=== PATIENT | male | born 1970 | race African-American/Black ===

== ENCOUNTER → 2018-07-26 | Day surgery (SDC) | payer BC ==
[2018-07-25 11:49] LABS: BASOPHILS % 0.8 % (0.0-1.0); EOSINOPHILS # (AUTO) 0.4 (0.0-0.4); EOSINOPHILS % 6.8 % (0.0-6.0); HEMATOCRIT 45.5 % (38.2-49.6); HEMOGLOBIN 15.3 g/dL (14.0-18.0); LYMPHOCYTES % 20.1 % (18.0-39.1); MEAN CORPUSCULAR HEMOGLOBIN 31.5 pg (28-32); MEAN CORPUSCULAR HGB CONC 33.6 g/dL (31-35); MEAN CORPUSCULAR VOLUME 93.6 fL (81-99); MONOCYTES # (AUTO) 0.8 (0.2-0.8); MONOCYTES % 16.1 % (4.4-11.3); NEUTROPHILS # (AUTO) 2.9 (2.1-6.9); PLATELET COUNT 195 x10e3/uL (140-360); RED BLOOD COUNT 4.86 x10e6/uL (4.3-5.7); RED CELL DISTRIBUTION WIDTH 14.3 % (11.7-14.4)
[2018-07-25 11:55] LABS: INR 0.91; PROTHROMBIN TIME 12.7 seconds (11.9-14.5)
[2018-07-25 12:03] LABS: ALANINE AMINOTRANSFERASE 54 IU/L (0-55); ALBUMIN 3.8 g/dL (3.5-5.0); ALKALINE PHOSPHATASE 34 IU/L (40-150); ANION GAP 11.9 mmol/L (8-16); BLOOD UREA NITROGEN 15 mg/dL (7-26); BUN/CREATININE RATIO 11 (6-25); CALCIUM 9.7 mg/dL (8.4-10.2); CARBON DIOXIDE 27 mmol/L (22-29); CHLORIDE 103 mmol/L (98-107); CREATININE, SERUM 1.35 mg/dL (0.72-1.25); EST GLOMERULAR FILTRATION RATE > 60 ML/MIN (60-); GLUCOSE 103 mg/dL (74-118); POTASSIUM 3.9 mmol/L (3.5-5.1); SODIUM 138 mmol/L (136-145)
[2018-07-25 12:23] LABS: CHOL/HDL RATIO 3.7 (3.9-4.7); CHOLESTEROL 191 MD/DL (0-199); HDL CHOLESTEROL 51 MG/DL (40-60); LDL CHOLESTEROL 118 MG/DL (60-130); TRIGLYCERIDES 109 MG/DL (0-149)
[2018-07-26] VITALS (13 sets, daily range): BP systolic 98–112; BP diastolic 58–78
[~2018-07-26] VITALS: Ht 180.3 cm; Wt 102.5 kg
[~2018-07-26] MED LIST: ALPRAZOLAM 0.5 MG TAB ONE; ANASTROZOLE1 MG PO; ASPIR 8181 MG PO; DIPHENHYDRAMINE HCL 25 MG CAP ONE; DUREZOL5 ML; FENTANYL CITRATE/PF 100MCG/2 ML INJ ONE; FISH OIL 1,0001 EAC2 PO; HEPARIN SOD (PORCINE) 1000 UNIT/ML 30ML ONE; HEPARIN SOD/SOD CHLORIDE 2,000 ML ONE; IOPAMIDOL 370 MG/ML 200 ML INFUS..BTL INJ ONE; LIDOCAINE HCL 2% LOCAL 20 ML VIAL ONE; LOPRESSOR25 MG PO; METOPROLOL SUCC25 MG PO; MIDAZOLAM HCL 2 MG/2 ML VIAL ONE; NITROGLYCERIN/D5W 200 MCG/ML 250 ML ONE; PREDNISONE10 MG PO; RAMIPRIL5 MG PO; SODIUM CHLORIDE 0.9% 1000ML 1,000 ML ONE; TESTOSTERO200 MG/11; VERAPAMIL HCL 2.5 MG/ML 2 ML VIAL ONE; VITAMIN AND MI1 EACH PO; VITAMIN C500 M1 PO; VITAMIN E400 UNI1 PO
--- OUTSIDE RECORDS SUMMARY | 2018-07-26 10:23 | XMS REPORT | Clinical Summary ---
Author Author Szymanski [facility] Organization [facility] Address Unknown Phone Unavailable Care Team Providers Care Carton Marker Machine Name Role Phone System, Provider Not In MD PCP Unavailable Allergies No Known Allergies Medications Not on file Active Problems Not on file Encounters Care Team Description Date Type Specialty Dimitri Maria MD Exposure to potentially hazardous chemical (Primary Dx) 06/10/2018 Emergency Emergency Medicine - 06/11/2018 after 07/25/2017 Social History Date Tobacco Use Types Packs/Day Years Used Never Assessed Sex Assigned at Date Recorded Not on file Industry Job Start Date Occupation Not on file Not on file Not on file Travel End Travel History Travel Start No recent travel history available. Last Filed Vital Signs Time Taken Vital Sign Reading 06/11/2018 2:44 AM CDT Blood Pressure 126/86 06/11/2018 2:44 AM CDT Pulse 72 06/11/2018 2:44 AM CDT Temperature 36.4 C (97.6 F) 06/11/2018 2:44 AM CDT Respiratory Rate 20 06/11/2018 2:44 AM CDT Oxygen Saturation 97% - Inhaled Oxygen - Concentration 06/10/2018 11:31 PM CDT Weight 106 kg (233 lb) 06/10/2018 11:31 PM CDT Height 180.3 cm (5' 11") 06/10/2018 11:31 PM CDT Body Mass Index 32.5 Plan of Treatment Not on file Procedures Comments Procedure Name Priority Date/Time Associated Diagnosis PHENOL LEVEL, URINE Routine 06/11/2018 12:05 AM CDT HC COMPLETE BLD COUNT STAT 06/11/2018 W/AUTO DIFF 12:05 AM CDT after 07/25/2017 Results * Phenol level, urine (06/11/2018 12:05 AM CDT) Phenol, urine 5.4 mg/L [facility] Comment: Urine Reporting Limit: 1.0 mg/L Less than 10 mg/L in unexposed individuals. Less than 30 mg/L when chronically exposed to 0.5 to 4.0 ppm Benzene in air. Average 200 mg/L during chronic exposure to 25 ppm Benzene in air. Analysis by Gas Chromatography (GC) Phenol, urine (creatinine 2.4 mg/g [facility] corrected) Comment: Urine Reporting Limit: 0.45 mg/g Creat Biological Exposure Index (ACGIH): 250 mg Phenol/g Creatinine measured in an end of shift urine. Analysis by Gas Chromatography (GC) Creatinine, urine mg/dL see note [facility] Comment: Creatinine,Urine Result:2203 mg/L - - - - - - - - - - - - - - - - - - - - - - - - - - Reporting Limit: 100 mg/L [place] Population (10th - 90th percentiles, median) All participants: 335 - 2370 mg/L, median 1180 (n=22,245) Males: 495 - 2540 mg/L, median 1370 (n=10,610) Females: 273 - 2170 mg/L, median 994 (n=11,635) Analysis by Colorimetry - - - - - - - - - - - - - - - - - - - - - - - - - sent to [facility] Lab Testing performed at [employer], [place]. [address] [place] [id number] Specimen Urine Performing Organization Address City/State/Zipcode Phone Number [facility] [address] [place] [address] [facility] [address] [place] [address] * CBC with platelet and differential (06/11/2018 12:05 AM CDT) WBC 6.2 4.2 - 11.0 k/uL [facility] RBC 5.26 4.04 - 5.86 m/uL [facility] HGB 16.4 13.0 - 17.3 g/dL [facility] HCT 49.4 (H) 34.0 - 45.0 % [facility] MCV 93.9 80.0 - 98.0 fL [facility] MCH 31.2 27.0 - 34.0 pg [facility] MCHC 33.2 31.5 - 36.5 g/dL [facility] RDW - SD 49.7 37.0 - 51.0 fL [facility] MPV 10.8 (H) 7.4 - 10.4 fL [facility] Platelet count 183 150 - 400 k/uL [facility] Nucleated RBC 0.00 /100 WBC [facility] Neutrophils 54.5 36.0 - 66.0 % [facility] Lymphocytes 21.8 (L) 24.0 - 44.0 % [facility] Monocytes 15.7 (H) 0.0 - 6.0 % [facility] Eosinophils 6.7 (H) 0.0 - 6.0 % [facility] Basophils 1.1 0.0 - 1.2 % [facility] Immature granulocytes 0.2 0.0 - 1.0 % [facility] Specimen Blood Performing Organization Address City/State/Zipcode Phone Number [facility] [place] [phone] PATHOLOGY AND GENOMIC MEDICINE [address] after 07/25/2017 Insurance Payer Benefit Subscriber ID Type Phone Address Plan / Group WORKERS COMP [place] xxxxxxxxx Workers INLAND Comp MARINE BCBS BCBS xxxxxxxxxxxx PPO CHOICE PPO/FEDERA L EMPL PPO Advance Directives Patient has advance care planning documents on file. For more information, plehafsa e contact: [address] [address]
--- NOTE | 2018-07-26 11:15 | NUR ---
pt in PACU 20, prepped for procedure. Alert oriented and appropriate, PERRLA, respirations even and unlabored to room air. Pulses x4 extremities equal and strong. Right hand + Allans Cap fill brisk < 3 sec. Skin warm and dry integrity appears intact in general. IV 20g x1 started and presents healthy w/o s/s of infiltration or complaint. Abdomen soft and supple. pt evacuated bladder. Personal affects with patient. Family at bedside. Pt and family verbalizes understanding of POC. bed low and locked, side rails up x2 and call light at side. -cgf
--- NOTE | 2018-07-26 13:03 | NUR ---
pt medicated xanax/ benadryl po and IVF started at 100ml/hr per dialflow. pt updated - cgf
--- NOTE | 2018-07-26 14:05 | NUR ---
Report provided to Riana Martinez RN, review of procedural findings and medications given. Patient drowsy, easily aroused. maintains airway and room air saturations of 96-98%. No gross issues of pressure, pain, pallor or dysrhythmia. IV site patent with NS 0.9% at KVO by dial-flow. patient hemodynamically stable with hemostasis. right radial TR band. CDI w/o s/s of bleeding. [facility]/o incident[facility] [place] [facility] [place]: Diagnostic Left heart cath and Coronary angiography Sheath puller: Natan Khan TRband 12ml Meds Given Intra-Procedure Sedatives Versed - 2 mg Fentanyl - 50 mcg Radial Cocktail Heparin - 3000 Units Nitro - 200mcg Verapamil - 2.5mg Fluids Input - 100ml Output - dtv Contrast Isovue 370 - 60ml
--- NOTE | 2018-07-26 15:05 | NUR ---
Removed 2ml of air from right wrist TR band. Right wrist site appears to be without signs or symptoms of active bleeding at this time. Palpable right radial pulse. Patient tolerated well. No distress noted at this time.
--- NOTE | 2018-07-26 15:20 | NUR ---
Removed 2ml of air from right wrist TR band. Patient tolerated well. Right wrist site appears to be without signs or symptoms of active bleeding at this time. No distress noted at this time. will monitor.
--- NOTE | 2018-07-26 15:35 | NUR ---
Attempted to remove 3ml of air from right wrist TR band. There appeared to be active bleeding from right wrist site. 3ml of air placed back into TR band. Right wrist site appears to be without signs or symptoms of active bleeding after 3ml of air placed back into TR band. No distress noted. will monitor.
--- NOTE | 2018-07-26 16:00 | NUR ---
Reviewed discharge instructions with patient and family. Reviewed activity restrictions, dressing care, diet, discharge medication reconciliation, and follow up appointment. Reviewed signs and symptoms:when to call the doctor and when to call 911. Patient and family verbalized understanding and had no questions at this time. Patient discharge pending 5ml of air to be removed from TR band.
--- NOTE | 2018-07-26 16:15 | NUR ---
1615 [facility] diagnostic only Dr Bingham. Rt TR band approach received report from Riana MENDEZ ok to re-titrate again at 1630pm. No gross signs of pain pallor pressure or dysrhythmia. DC plans completed by previous RN. No questions or concerns. at bedside. abdomen soft and nontender Denies necessity to defecate or urinate. Left iv w/o s/s infiltration. Bilateral ppx4 present.Tolerated po intake well. Iv in wrist 1 liter infused. 1700 TR band titration completed NO s/s hematoma. sterile 2x2 and Tegaderm and Coban applied with wrist splint. Radial pulse adequate. Iv removed and Coban dressing in place. Escorted to car per w/c aware of dc plans and importance of f/o care. Wrist splint in place is driving.Has copies of POC. No gross signs of pain,pallor,pressure or dysthymia. ds/kaci
--- NOTE | 2018-07-26 19:07 | Operative Report ---
DATE OF PROCEDURE: 07/26/2018 SURGEON: Antonio Bingham MD INDICATIONS: Coronary artery disease, angina with abnormal stress test. PROCEDURES PERFORMED: 1. Left heart catheterization, selective coronary angiography, left ventriculography. 2. Deployment of right wrist TR band. COMPLICATIONS: None. RECOMMENDATIONS: Medical therapy. DESCRIPTION OF PROCEDURE: Access was obtained in the right radial artery. A 5-Jordanian sheath was placed. Diagnostic coronary angiogram revealed no angiographic coronary artery disease. Excellent flow in all vessels. No critical stenosis or occlusions. LV ejection fraction 70%. LV end-diastolic pressure of 10. No gradient across the aortic valve on pullback. Right wrist sheath and guide removed. TR band applied. The patient discharged home same day. Antonio Bingham MD KSB/MODL /[id number]
== END | disposition home or self-care (01) ==
LOC: CATH LAB 10:22
PROVIDERS: ATTEND Internal Medicine Interventional Cardiology
DX: I25.119 Atherosclerotic heart disease of native coronary artery with unspecified angina pectoris (principal); Z01.812 Encounter for preprocedural laboratory examination; Z79.82 Long term (current) use of aspirin
CPT/HCPCS: 36415; 80053; 80061; 85025; 85610; 93458; C1769; C1887; J1644; J2001; J2250; J7030; Q9967

== ENCOUNTER 2019-08-02 15:11 | Emergency (ER) | payer BC ==
[~2019-08-02] VITALS: Ht 180.3 cm; Wt 102.5 kg
[~2019-08-02 15:11] MED LIST changes: -ALPRAZOLAM 0.5 MG TAB ONE; -DIPHENHYDRAMINE HCL 25 MG CAP ONE; -FENTANYL CITRATE/PF 100MCG/2 ML INJ ONE; -HEPARIN SOD (PORCINE) 1000 UNIT/ML 30ML ONE; -HEPARIN SOD/SOD CHLORIDE 2,000 ML ONE; -IOPAMIDOL 370 MG/ML 200 ML INFUS..BTL INJ ONE; -LIDOCAINE HCL 2% LOCAL 20 ML VIAL ONE; -MIDAZOLAM HCL 2 MG/2 ML VIAL ONE; -NITROGLYCERIN/D5W 200 MCG/ML 250 ML ONE; -SODIUM CHLORIDE 0.9% 1000ML 1,000 ML ONE; -VERAPAMIL HCL 2.5 MG/ML 2 ML VIAL ONE
--- OUTSIDE RECORDS SUMMARY | 2019-08-02 15:14 | XMS REPORT ---
Author Author [facility] Organization [facility] Address [address] [place] [address] Phone Unavailable Care Team Providers Care Java Manager Name Role Phone AILIN CAMERON DO PCP Payers Payer Name Policy Type Policy Number Effective Date Expiration Date [facility] [id number] 2015 00:00:00 [facility] Problems Condition Name Condition Details Condition Category Status Onset Date Resolution Date Last Treatment Date Treating Clinician Comments Source Chest pain Chest pain Problem Active C [facility] Chest wall pain Chest wall pain Problem Active [facility] Rhabdomyolysis Rhabdomyolysis Problem Active [facility] Sarcoidosis Sarcoidosis Problem Active [facility] Allergies, Adverse Reactions, Alerts This patient has no known allergies or adverse reactions. Social History Social Habit Start Date Stop Date Quantity Comments Source Sex Assigned At Daniela Dupree Medications Ordered Medication Name Filled Medication Name Start Date Stop Da te Current Medication? Ordering Clinician Indication Dosage Frequency Signature (SIG) Comments Components Source Ascorbic Acid (Vitamin C) 500 Mg Tablet Ascorbic Acid (Vitam in C) 500 Mg Tablet Yes 500 Daily [facility] Aspirin (Aspir 81) 81 Mg Tablet. Aspirin (Aspir 81) 81 Mg Tablet. Yes 81 Daily [facility] Metoprolol Succinate 25 Mg Tab.er.24h Metoprolol Succinate 25 Mg Ta b.er.24h Yes 25 Daily [facility] [place]-3 Fatty Acids/Fish Oil (Fish Oil 1,000 Mg Capsul e) 1 Each Capsule [place]-3 Fatty Acids/Fish Oil (Fish Oil 1,000 Mg Capsule) 1 Each Capsule Yes 500 Daily [facility] Ramipril 5 Mg Capsule Ramipril 5 Mg Capsule Yes 5 Daily [facility] Vitamin E Mixed (Vitamin E) 400 Unit Capsule Vitamin E Mixed (Vitamin E) 400 Unit Capsule Yes 400 Daily [facility] Metoprolol Tartrate (Lopressor) 25 Mg Tab, 25 Mg Oral Metoprolol Tartrate (Lopressor) 25 Mg Tab, 25 Mg Oral 2018-07-25 00:00:00 No 25 Daily [facility] Difluprednate (Durezol) 5 Ml Drops, Difluprednate (Durezol) 5 Ml Drops, 2015-01-24 00:00:00 [facility] Prednisone 10 Mg Tab, 10 Mg Oral Prednisone 10 Mg Tab, 10 Mg Ora l 2015-01-24 00:00:00 No 10 Daily [facility] Anastrozole 1 Mg Tablet, 1 Mg Oral Anastrozole 1 Mg Tablet, 1 Mg Oral 2014-02-26 00:00:00 No 1 [facility] Multivitamins,Ther W-Minerals (Vitamin And Minerals) 1 Each Tablet, Tab Oral Multivitamins,Ther W-Minerals (Vitamin And Minerals) 1 Each Tablet, Tab Oral 2014-02-26 00:00:00 No Daily [facility] Testosterone Enanthate 200 Mg/1 Ml Vial, Testosterone Enanthate 200 Mg/1 Ml Vial, 2014-02-26 00:00:00 [facility] Procedures Procedure Date / Time Performed Performing Clinician Romario Khan HRT ARTERY/VENTRICLE ANGIO 2018-07-26 00:00:[address] [facility] Encounters Start Date/Time End Date/Time Encounter Type Admission Type [facility] Care Department Encounter ID Source 2019-01-09 08:18:50 Outpatient [facility] [id number] 2019-03-10 00:19:00 2019-03-10 00:55:00 Departed Emergency Room [facility] [id number] [facility] 2018-12-30 14:49:00 2018-12-30 14:49:00 Outpatient [facility] [id number] 2018-07-26 10:22:00 2018-07-26 10:22:00 Registered Surgical Day Care [facility] [id number] [facility] 2013-05-11 17:17:15 2013-05-11 17:17:14 Outpatient [facility] [id number] 2013-05-05 09:24:07 2013-05-05 09:24:07 Outpatient [facility] [id number] 2013-03-27 09:36:26 2013-03-27 09:36:26 Outpatient [facility] [id number] 2013-03-24 14:06:39 2013-03-24 14:06:39 Outpatient [facility] [id number] Results Test Description Test Time Test Comments Results Result Comments Source Triglycerides Level 2018-07-25 12:24:00 Test Item Triglycerides Level (test code = 2571-8) 109 0-149 [facility] [id number] 12:24:00* Test Item Value Reference Range Interpretation Comments Cholesterol Level (test code = 2093-3) 191 0-199 Less than 200 mg/dL Low Hxfp429 - 239 mg/dL Borderline Sgnm229 m g/dl and greater High Risk [facility] HospitalLDL Okxkytyzals7069-09-35 12:24:00* Test Item Value Reference Range Interpretation Comments LDL Cholesterol (test code = 2089-1) 118 60-130 [facility]HDL Mrryedxxkrq6694-84-33 12:24:00* Test Item Value Reference Range Interpretation Comments HDL Cholesterol (test code = 2085-9) 51 40-60 [facility]/HDL Dnzke3471-61-27 12:24:00 * Test Item Value Reference Range Interpretation Comments Cholesterol/HDL Ratio (test code = 9830-1) 3.7 3.9-4.7 [facility] [id number] 12:04:00* Test Item Value Reference Range Interpretation Comments Sodium Level (test code = 2951-2) 138 136-145 [facility]Potassium Nmcpx1895-10-05 12:04:00* Test Item Value Reference Range Interpretation Comments Potassium Level (test code = 2823-3) 3.9 3.5-5.1 [facility] HospitalChloride [id number] 12:04:00* Test Item Value Reference Range Interpretation Comments Chloride Level (test code = 2075-0) 103 98-107 [facility] HospitalCarbon Dioxide [id number] 12:04:00* Test Item Value Reference Range Interpretation Comments Carbon Dioxide Level (test code = 2028-9) 27 22-29 [facility] HospitalAnion [id number] 12:04:00* Test Item Value Reference Range Interpretation Comments Anion Gap (test code = 22384-7) 11.9 8-16 [facility] HospitalBlood Urea [id number] 12:04:00* Test Item Value Reference Range Interpretation Comments Blood Urea Nitrogen (test code = 3094-0) 15 7-26 [facility] HospitalCreatinine2019-05-06 12:04:00* Test Item Value Reference Range Interpretation Comments Creatinine (test code = 2160-0) 1.35 0.72-1.25 [facility] HospitalBUN/Creatinine Kftzg4126-86-09 12:04:00* Test Item Value Reference Range Interpretation Comments BUN/Creatinine Ratio (test code = 3097-3) 11 6-25 [facility] HospitalEstimat Glomerular Filtration Rate 2018-07-25 12:04:00* Test Item Value Reference Range Interpretation Comments Estimat Glomerular Filtration Rate (test code = 831782360) > 60 >60 Ranges were taken from the National Kidney Disease Education Program and the [facility] Foundation literature.Reference ranges:60 or greater: Jqcwfv30-90 ( for 3 consecutive months): Chronic kidney disease 15 or less: Kidney failureBaptist Saint Anthony's HospitalGlucose Pdqci4097-25-08 12:04:00* Test Item Value Reference Range Interpretation Comments Glucose Level (test code = AIG5013) 103 74-118 [facility] HospitalCalcium Opeoi8593-97-14 12:04:00* Test Item Value Reference Range Interpretation Comments Calcium Level (test code = 27630-1) 9.7 8.4-10.2 [facility] HospitalTotal Ngsmzfiyb2502-32-22 12:04:00* Test Item Value Reference Range Interpretation Comments Total Bilirubin (test code = 1975-2) 0.7 0.2-1.2 [facility] HospitalAspartate Amino Transf (AST/SGOT) 2018-07-25 12:04:00* Test Item Value Reference Range Interpretation Comments Aspartate Amino Transf (AST/SGOT) (test code = Aspartate Amino Transf (AST/SGOT)) 51 5-34 [facility] HospitalAlanine Aminotransferase (ALT/SGPT) 2018-07-25 12:04:00* Test Item Value Reference Range Interpretation Comments Alanine Aminotransferase (ALT/SGPT) (test code = 1742-6) 54 0-55 [facility] HospitalTotal Jglafgs9682-20-15 12:04:00* Test Item Value Reference Range Interpretation Comments Total Protein (test code = 2885-2) 7.7 6.5-8.1 [facility] HospitalAlbumin2019-05-06 12:04:00* Test Item Value Reference Range Interpretation Comments Albumin (test code = 1751-7) 3.8 3.5-5.0 [facility] HospitalGlobulin2019-05-06 12:04:00* Test Item Value Reference Range Interpretation Comments Globulin (test code = 06056-1) 3.9 2.3-3.5 [facility] HospitalAlbumin/Globulin [id number] 12:04:00 * Test Item Value Reference Range Interpretation Comments Albumin/Globulin Ratio (test code = 1759-0) 1.0 0.8-2.0 [facility] HospitalAlkaline Sgoqhtbhwcs3182-67-67 12:04:00* Test Item Value Reference Range Interpretation Comments Alkaline Phosphatase (test code = 6768-6) 34 40-150 [facility] HospitalProthrombin Sbxs7229-78-92 11:56:00* Test Item Value Reference Range Interpretation Comments Prothrombin Time (test code = 5902-2) 12.7 11.9-14.5 [facility] HospitalProthromb Time International Ratio 2018-07-25 11:56:00* Test Item Value Reference Range Interpretation Comments Prothromb Time International Ratio (test code = 6301-6) 0.91 Oral Anticoagulant Therapy INR Values:1. Low Intensity Therapy 1.5 - 2.02 . Moderate Intensity Therapy 2.0 - 3.03. High Intensity Therapy(1) 2.5 - 3. 54. High Intensity Therapy(2) 3.0 - 4.05. Panic Value INR > 5.0 [facility] HospitalWhite Blood Otvdx6882-25-22 11:51:00* Test Item Value Reference Range Interpretation Comments White Blood Count (test code = 6690-2) 5.17 4.8-10.8 [facility] HospitalRed Blood Jihyc4609-28-07 11:51:00* Test Item Value Reference Range Interpretation Comments Red Blood Count (test code = 789-8) 4.86 4.3-5.7 [facility] HospitalHemoglobin2019-05-06 11:51:00* Test Item Value Reference Range Interpretation Comments Hemoglobin (test code = 47848-0) 15.3 14.0-18.0 [facility] HospitalHematocrit2019-05-06 11:51:00* Test Item Value Reference Range Interpretation Comments Hematocrit (test code = 4544-3) 45.5 38.2-49.6 [facility] HospitalMean Corpuscular Lkmzqy3915-01-42 11:51:00* Test Item Value Reference Range Interpretation Comments Mean Corpuscular Volume (test code = 787-2) 93.6 81-99 [facility] HospitalMean Corpuscular Cathccoywx3905-54-92 11:51:00* Test Item Value Reference Range Interpretation Comments Mean Corpuscular Hemoglobin (test code = 785-6) 31.5 28-32 [facility] HospitalMean Corpuscular Hemoglobin Concent 2018-07-25 11:51:00* Test Item Value Reference Range Interpretation Comments Mean Corpuscular Hemoglobin Concent (test code = 786-4) 33.6 31-35 [facility] HospitalRed Cell Distribution Dhfwt9170-29-24 11:51:00* Test Item Value Reference Range Interpretation Comments Red Cell Distribution Width (test code = 01749-6) 14.3 11.7 -14.4 [facility] HospitalPlatelet Oytht8903-88-49 11:51:00* Test Item Value Reference Range Interpretation Comments Platelet Count (test code = 777-3) 195 140-360 [facility] HospitalNeutrophils (%) (Auto)2018-07-25 11:51:00 * Test Item Value Reference Range Interpretation Comments Neutrophils (%) (Auto) (test code = 93433-8) 56.0 38.7-80.0 [facility] HospitalLymphocytes (%) (Auto)2018-07-25 11:51:00 * Test Item Value Reference Range Interpretation Comments Lymphocytes (%) (Auto) (test code = 736-9) 20.1 18.0-39.1 [facility] HospitalMonocytes (%) (Auto)2018-07-25 11:51:00* Test Item Value Reference Range Interpretation Comments Monocytes (%) (Auto) (test code = 5905-5) 16.1 4.4-11.3 [facility] HospitalEosinophils (%) (Auto)2018-07-25 11:51:00 * Test Item Value Reference Range Interpretation Comments Eosinophils (%) (Auto) (test code = 713-8) 6.8 0.0-6.0 [facility] HospitalBasophils (%) (Auto)2018-07-25 11:51:00* Test Item Value Reference Range Interpretation Comments Basophils (%) (Auto) (test code = 706-2) 0.8 0.0-1.0 [facility] HospitalIM GRANULOCYTES %2018-07-25 11:51:00* Test Item Value Reference Range Interpretation Comments IM GRANULOCYTES % (test code = IM GRANULOCYTES %) 0.2 0.0- 1.0 [facility] HospitalNeutrophils # (Auto)2018-07-25 11:51:00* Test Item Value Reference Range Interpretation Comments Neutrophils # (Auto) (test code = 751-8) 2.9 2.1-6.9 [facility] HospitalLymphocytes # (Auto)2018-07-25 11:51:00* Test Item Value Reference Range Interpretation Comments Lymphocytes # (Auto) (test code = 85571-5) 1.0 1.0-3.2 [facility] HospitalMonocytes # (Auto)2018-07-25 11:51:00* Test Item Value Reference Range Interpretation Comments Monocytes # (Auto) (test code = 742-7) 0.8 0.2-0.8 [facility] HospitalEosinophils # (Auto)2018-07-25 11:51:00* Test Item Value Reference Range Interpretation Comments Eosinophils # (Auto) (test code = 711-2) 0.4 0.0-0.4 [facility] HospitalBasophils # (Auto)2018-07-25 11:51:00* Test Item Value Reference Range Interpretation Comments Basophils # (Auto) (test code = 704-7) 0.0 0.0-0.1 [facility] HospitalAbsolute Immature Granulocyte (auto 2018-07-25 11:51:00* Test Item Value Reference Range Interpretation Comments Absolute Immature Granulocyte (auto (eugene t code = Absolute Immature Granulocyte (auto) 0.01 0-0.1 [facility]
--- OUTSIDE RECORDS SUMMARY | 2019-08-02 15:14 | XMS REPORT | Clinical Summary ---
Author Author [facility] Organization [facility] Address Unknown Phone Unavailable Care Team Providers Care Ruby Software Developer Name Role Phone System, Provider Not In MD PCP Unavailable Allergies No Known Allergies Medications Not on file Active Problems Not on file Social History Date Tobacco Use Types Packs/Day Years Used Never Assessed Sex Assigned at Date Recorded Not on file Industry Job Start Date Occupation Not on file Not on file Not on file Travel End Travel History Travel Start No recent travel history available. Last Filed Vital Signs Not on file Plan of Treatment Not on file Results Not on fileafter 08/01/2018 Insurance Type Payer Benefit Subscriber ID Effective Phone Address Plan / Dates Group Workers Comp WORKERS COMP [place] xxxxxxxxx 2018- [place] Present [place]INE PPO BCBS BCBS xxxxxxxxxxxx 2017-P CHOICE resent PPO/FEDERA L EMPL PPO Advance Directives For more information, please contact: [phone] Patient Supervisor Special Education Explanation Type Date Recorded Advance Directives, Living Will and Medical Power of Senior Account Executive Advance Directives, 06/11/2018 1:25 AM Living Will and Medical Power of Senior Account Executive
--- NOTE | 2019-08-02 15:58 | Emergency Department Note ---
History of Present Illnes History of Present Illness Chief Complaint: chest pain History of Present Illness This is a 48 year old male . Historian: Patient Arrival Mode: Car Network/Telecom Engineer Required: No Onset (how long ago): hour(s) (one hour ago) Radiation: non-radiation Severity: mild Onset quality: sudden Duration (how long): hour(s) Timing of current episode: intermittent Progression: resolved Chronicity: new Relieving factors: none Exacerbating factors: none Associated symptoms: denies other symptoms Treatments prior to arrival: none (JAN RIVAS NP) Past Medical/Family History Physician Review I have reviewed the patient's past medical and family history. Any updates have been documented here. (JAN RIVAS NP) Past Medical History Recent Fever: No Clinical Suspicion of Infectio: No New/Unexplained Change in Ment: No Past Medical History: CHF Other Medical History: SARCODOSIS Other Surgery: cataracts L EYE R EYE (JAN RIVAS NP) Social History Any Illegal Drug Use: No TB Exposure/Symptoms: No Physically hurt or threatened: No (JAN RIVAS NP) Family History Family history of heart diseas: No (JAN RIVAS NP) Other Last Tetanus: UTD Any Pre-Existing Lines (PICC,: No Is patient up to date on immun: Yes (JAN RIVAS NP) Review of Systems ROS Narrative PATIENT IS A 48 YEAR OLD MALE THAT PRESENTS WITH 3 SHOCK LIKE PAINS TO THE RIGHT SIDE OF HIS CHEST. PATIENT STATES HE HAS A HALTER MONITOR ON AND RECENTLY SAW DR KYLE AND HAD A STRESS TEST COMPLETED.PATIENT HAS NO CP AT THIS TIME BUT WAS SENT BY DR JOSESITO OG. (JAN RIVAS NP) Review of Systems Constitutional: no symptoms EENTM: no symptoms Cardiovascular: no symptoms Respiratory: no symptoms Gastrointestinal: no symptoms Genitourinary: no symptoms Musculoskeletal: no symptoms Integumentary: no symptoms Neurological: no symptoms Psychological: no symptoms Endocrine: no symptoms Hematological/Lymphatic: no symptoms Review of other systems All other systems reviewed and negative. (JAN RIVAS NP) Physical Exam Related Data Allergies: Coded Allergies: No Known Allergies (Unverified , 07/19/11) Triage Vital Signs Vital Signs Date Time Temp Pulse Resp B/P (MAP) Pulse Ox O2 Delivery O2 Flow Rate FiO2 08/02/19 15:29 98.0 83 17 130/84 98 (JAN RIVAS NP) Physical Exam CONSTITUTIONAL Constitutional: well-developed, well-nourished HENT HENT: normocephalic, atraumatic, oropharynx clear/moist, nose normal HENT - Ear: left ext ear normal, right ext ear normal EYES Eyes: PERRL, conjunctivae normal NECK Neck: ROM normal PULMONARY Pulmonary: effort normal, breath sounds normal CARDIOVASCULAR Cardiovascular: regular rhythm, heart sounds normal, capillary refill normal, normal rate GASTROINTESTINAL Abdominal: soft, nontender, bowel sounds normal GENITOURINARY Genitourinary: exam deferred SKIN Skin: warm, dry MUSCULOSKELETAL Musculoskeletal: ROM normal NEUROLOGICAL Neurological: alert, oriented x 3, no gross motor or sensory deficits PSYCHOLOGICAL Psychiatric/behavioral: mood/affect normal, judgement normal (JAN RIVAS NP) Procedures 12 Lead ECG Interpretation Network/Telecom Engineer: Interpreted by ED physician (GRACE) Date: August 02, 2019 Time: 15:35 Prior DECONTAMINATOR tracings: reviewed Rhythm: sinus rhythm Rate: normal BMP: 69 QRS axis: normal Clinical Impression: normal ECG (JAN RIVAS NP) Critical Care Time Subsequent provider I assumed direction of critical care for this patient from another provider of my specialty. (JAN RIVAS NP) Assessment & Plan Assessment & Plan Problems: (1) Chest wall pain (2) Chest pain Assessment & Plan 1550- DR KYLE CALLED AND STATES HE IS GOING TO LOOK AT THE RECENT STRESS TEST RESULTS AND CALL BACK. EKG IS NORMAL (JAN RIVAS NP) Reassessment Reassessment time: 16:[address] Kyle called back and stated stress test was normal. OK to DC patient to follow up in office tomorrow morning (JAN RIVAS NP) Depart Disposition: HOME, SELF-CARE Last Vital Signs Date Time Temp Pulse Resp B/P (MAP) Pulse Ox O2 Delivery O2 Flow Rate FiO2 08/02/19 15:29 98.0 83 17 130/84 98 (JAN RIVAS NP) Home Meds Reported Medications Aspirin (ASPIR 81) 81 Mg Tablet.dr 81 MG PO DAILY 07/25/18 Ascorbic Acid (VITAMIN C) 500 Mg Tablet, 500 MG PO DAILY 07/25/18 Vitamin E Mixed (VITAMIN E) 400 Unit Capsule, 400 UNIT PO DAILY 07/25/18 [place]-3 Fatty Acids/Fish Oil (FISH OIL 1,000 MG CAPSULE) 1 Each Capsule, 500 MG PO DAILY 07/25/18 Metoprolol Succinate (METOPROLOL SUCCINATE) 25 Mg Tab.er.24h, 25 MG PO DAILY 07/25/18 Ramipril (RAMIPRIL) 5 Mg Capsule, 5 MG PO DAILY, #30 TAB 01/24/15 Attestation Provider Attestation Pt seen and examined with inpatient auditor, pt presents for PALPITATIONS Exam as follows - CV- RRR, L- CTA BILAT I agree with inpatient auditor assessment and disposition. I SPOKE WITH DR KYLE - HE REVIEWED STRESS TEST DONE TODAY WHICH WAS NORMAL, EF WAS BASELINE AT 47%, REVIEWED CARDIAC EVENT MONITOR AND SAYS NO CRITICAL EVENTS, JUST SINUS TACHY, WILL F/U IN CLINIC IN AM TOMORROW. (LALO EDWARDS MD) JAN RIVAS NP August 02, 2019 15:58 LALO EDWARDS MD August 02, 2019 16:47
[2019-08-02 16:50] VITALS: BP 135/77
== END 2019-08-02 16:51 | disposition home or self-care (01) ==
LOC: ER 15:11
DX: R07.89 Other chest pain (principal); I50.9 Heart failure, unspecified; D86.9 Sarcoidosis, unspecified
CPT/HCPCS: 93005; 99282

== ENCOUNTER → 2020-11-05 | Outpatient (CLI) | payer OTHER ==
[~2020-11-05] MED LIST changes: +IOPAMIDOL 370 MG/ML 200 ML INFUS..BTL INJ ONE; +METOPROLOL TARTRATE 25 MG TAB ONE; +METOPROLOL TARTRATE INJ 1 MG/ML VIAL ONE; +NITROGLYCERIN 0.4 MG SUBL ONE; +SODIUM CHLORIDE 0.9% 100 ML ONE
== END ==
LOC: CT 08:13
PROVIDERS: ATTEND Internal Medicine Interventional Cardiology
DX: I20.9 Angina pectoris, unspecified (principal)
CPT/HCPCS: 75574; J7050; Q9967

== ENCOUNTER 2021-09-13 10:31 | Emergency (ER) | payer OTHER ==
[~2021-09-13] VITALS: Ht 180.3 cm; Wt 102.5 kg
[~2021-09-13 10:31] MED LIST changes: -IOPAMIDOL 370 MG/ML 200 ML INFUS..BTL INJ ONE; -METOPROLOL TARTRATE 25 MG TAB ONE; -METOPROLOL TARTRATE INJ 1 MG/ML VIAL ONE; -NITROGLYCERIN 0.4 MG SUBL ONE; -SODIUM CHLORIDE 0.9% 100 ML ONE
[2021-09-13] MEDS ORDERED: SODIUM CHLORIDE FLUSH 10 ML SYR IV PRN (11:00)
[2021-09-13] MEDS ORDERED: ASPIRIN 325 MG TAB PO ONE (11:00)
[2021-09-13 11:27] LABS: BASOPHILS % 0.6 % (0.0-1.0); EOSINOPHILS # (AUTO) 0.2 (0.0-0.4); EOSINOPHILS % 2.4 % (0.0-6.0); HEMATOCRIT 45.6 % (38.2-49.6); HEMOGLOBIN 14.9 g/dL (14.0-18.0); LYMPHOCYTES # (AUTO) 1.3 (1.0-3.2); LYMPHOCYTES % 20.7 % (18.0-39.1); MEAN CORPUSCULAR HEMOGLOBIN 31.4 pg (28-32); MEAN CORPUSCULAR HGB CONC 32.7 g/dL (31-35); MONOCYTES # (AUTO) 0.7 (0.2-0.8); MONOCYTES % 10.7 % (4.4-11.3); NEUTROPHILS # (AUTO) 4.1 (2.1-6.9); NEUTROPHILS % 65.4 % (38.7-80.0); PLATELET COUNT 221 x10e3/uL (140-360); RED BLOOD COUNT 4.75 x10e6/uL (4.3-5.7); RED CELL DISTRIBUTION WIDTH 13.5 % (11.7-14.4)
[2021-09-13 11:39] LABS: INR 0.89; PROTHROMBIN TIME 12.9 seconds (11.9-14.5)
[2021-09-13 11:40] LABS: PARTIAL THROMBOPLASTIN TIME 24.7 seconds (23.8-35.5)
[2021-09-13 11:45] LABS: ALANINE AMINOTRANSFERASE 45 IU/L (0-55); ALBUMIN/GLOBULIN RATIO 0.9 (0.8-2.0); ALKALINE PHOSPHATASE 40 IU/L (40-150); ANION GAP 15.6 mmol/L (8-16); BLOOD UREA NITROGEN 12 mg/dL (7-26); BUN/CREATININE RATIO 10 (6-25); CARBON DIOXIDE 25 mmol/L (22-29); CHLORIDE 101 mmol/L (98-107); CREATININE, SERUM 1.21 mg/dL (0.72-1.25); GLUCOSE 97 mg/dL (74-118); POTASSIUM 3.6 mmol/L (3.5-5.1); SODIUM 138 mmol/L (136-145)
== END 2021-09-13 13:20 | disposition home or self-care (01) ==
LOC: ER 10:45
DX: R07.9 Chest pain, unspecified (principal); I50.9 Heart failure, unspecified; D86.9 Sarcoidosis, unspecified; R94.31 Abnormal electrocardiogram [ECG] [EKG]; H26.9 Unspecified cataract
CPT/HCPCS: 36415; 71045; 80053; 83880; 84484; 85025; 85610; 85730; 93005; 99284

== ENCOUNTER → 2022-04-09 | Outpatient (CLI) | payer OTHER ==
[~2022-04-09] MED LIST changes: +IOPAMIDOL 370 MG/ML 100 ML INFUS..BTL INJ ONE
== END ==
LOC: CT 12:55
PROVIDERS: ATTEND Family Medicine
DX: R07.1 Chest pain on breathing (principal); R79.1 Abnormal coagulation profile; D86.9 Sarcoidosis, unspecified
CPT/HCPCS: 71260; Q9967

== ENCOUNTER → 2023-04-28 | Outpatient (REF) | payer OTHER ==
[~2023-04-28] MED LIST changes: -IOPAMIDOL 370 MG/ML 100 ML INFUS..BTL INJ ONE
== END ==
LOC: CT 09:54
PROVIDERS: ATTEND Internal Medicine Pulmonary Disease
DX: D86.0 Sarcoidosis of lung (principal)
CPT/HCPCS: 71250